=== PATIENT | male | born 1950 | race African-American/Black ===

== ENCOUNTER 2018-11-22 21:32 | Emergency (ER) | payer MEDICARE, BC ==
--- NOTE | 2018-11-23 01:06 | ER Document Report ---
ED Medical Screen (RME) - General Chief Complaint: Fall Stated Complaint: FALL/CHECK Time Seen by Provider: 11/23/18 01:04 Primary Care Provider: TIFFANY LIAO MD [Primary Care Provider] - Follow up as needed Mode of Arrival: Ambulatory Information source: Patient Notes: 68-year-old male presents to ED for complaint of fall when he tripped over a bag at his house hitting a wall with his face. He has a skin tear possible laceration to the left cheek bone. Does have pain and swelling to the left cheek. States he has body aches and muscle aches but there is no vertebral tenderness to the neck or upper back. Patient states he does fall over things in the house. He does have cataracts worse on the left than on the right. Patient is alert oriented respirations regular and unlabored speaking in full sentences walks with a even steady gait. I have greeted and performed a rapid initial assessment of this patient. A comprehensive ED assessment and evaluation of the patient, analysis of test results and completion of medical decision making process will be conducted by an additional ED providers. TRAVEL OUTSIDE OF THE [place] IN LAST 30 DAYS: No - Related Data Allergies/Adverse Reactions: No Known Allergies Allergy (Verified 06/18/14 23:43) Past Medical History - Past Medical History Cardiac Medical History: Reports: Hx Hypercholesterolemia, Hx Hypertension, Hx Pulmonary Embolism GI Medical History: Reports: Hx Gastroesophageal Reflux Disease - Immunizations Hx Diphtheria, Pertussis, Tetanus Vaccination: Yes Physical Exam - Vital signs Vitals: Temp Pulse Resp BP Pulse Ox 98.4 F 78 18 149/74 H 98 11/22/18 21:51 11/22/18 21:51 11/22/18 21:51 11/22/18 21:51 11/22/18 21:51 Course - Vital Signs Vital signs: Temp Pulse Resp BP Pulse Ox 98.4 F 78 18 149/74 H 98 11/22/18 21:51 11/22/18 21:51 11/22/18 21:51 11/22/18 21:51 11/22/18 21:51 Doctor's Discharge - Discharge Referrals: TIFFANY LIAO MD [Primary Care Provider] - Follow up as needed
[2018-11-23] MEDS ORDERED: DIPH/PERTUSS(ACELL)/TETANUS VAC/PF 0.5 ML SYR (>=10YO) IM ONE (02:07)
[2018-11-23] MEDS ORDERED: LIDOCAINE 0.5%/EPINEPHRINE INJ 50 ML VIAL INJ ONE (02:09)
--- NOTE | 2018-11-23 02:37 | RADIOLOGY REPORT (SQ) ---
EXAM DESCRIPTION: XR FACIAL BONES 1-2 VIEWS COMPLETED DATE/TME: 11/23/2018 01:04 CLINICAL HISTORY: 68 years Male, fall laceration to left cheek COMPARISON: None. Findings: Known soft tissue injury; no radioopaque foreign body. Bones, joints, and soft tissues of the BILATERAL XR FACIAL BONES 2 VIEWS appear otherwise intact. IMPRESSION: Soft tissue injury; else, no acute findings.
--- NOTE | 2018-11-23 04:46 | ER Document Report ---
Entered by CONNIE PAIZ SCRIBE 11/23/18 0213 Acting as scribe for:FELICIA COUGHLIN DO ED Fall - General Chief Complaint: Fall Stated Complaint: FALL/CHECK Time Seen by Provider: 11/23/18 01:04 Primary Care Provider: TIFFANY LIAO MD [Primary Care Provider] - Follow up in 3-5 days Mode of Arrival: Ambulatory Information source: Patient Notes: 68-year-old male who presents to the emergency department today with complaints of a laceration to the left side of his face. Patient states he tripped over the strap on a bag and he fell forward. Patient states he was able to catch himself on the wall with his hands however he hit the left side of his face on the mantle above his fireplace. Patient denies a headache or loss of co nsciousness. TRAVEL OUTSIDE OF THE [place] IN LAST 30 DAYS: No - Related data Allergies/Adverse Reactions: No Known Allergies Allergy (Verified 06/18/14 23:43) Past Medical History - General Information source: Patient - Social History Smoking Status: Unknown if Ever Smoked Family History: Reviewed & Not Pertinent Patient has suicidal ideation: No Patient has homicidal ideation: No - Past Medical History Cardiac Medical History: Reports: Hx Hypercholesterolemia, Hx Hypertension, Hx Pulmonary Embolism Renal/ Medical History: Denies: Hx Peritoneal Dialysis GI Medical History: Reports: Hx Gastroesophageal Reflux Disease - Immunizations Hx Diphtheria, Pertussis, Tetanus Vaccination: Yes Review of Systems - Review of Systems Constitutional: No symptoms reported EENT: No symptoms reported Cardiovascular: No symptoms reported Respiratory: No symptoms reported Gastrointestinal: No symptoms reported Genitourinary: No symptoms reported Male Genitourinary: No symptoms reported Musculoskeletal: No symptoms reported Skin: See HPI, Other - laceration to left face Hematologic/Lymphatic: No symptoms reported Neurological/Psychological: No symptoms reported -: Yes All other systems reviewed and negative Physical Exam - Vital signs Vitals: Temp Pulse Resp BP Pulse Ox 98.4 F 78 18 149/74 H 98 11/22/18 21:51 11/22/18 21:51 11/22/18 21:51 11/22/18 21:51 11/22/18 21:51 Interpretation: Normal - General General appearance: Appears well, Alert - HEENT Head: Normocephalic Eyes: Normal Pupils: PERRL Mouth/Lips: Normal Mucous membranes: Normal Pharynx: Normal Neck: Normal - Respiratory Respiratory status: No respiratory distress Chest status: Nontender Breath sounds: Normal Chest palpation: Normal - Cardiovascular Rhythm: Regular Heart sounds: Normal auscultation Murmur: No - Abdominal Inspection: Normal Distension: No distension Bowel sounds: Normal Tenderness: Nontender Organomegaly: No organomegaly - Back Back: Normal, Nontender - Extremities General upper extremity: Normal inspection, Nontender, Normal color, Normal ROM, Normal temperature General lower extremity: Normal inspection, Nontender, Normal color, Normal ROM, Normal temperature, Normal weight bearing. No: Ricky's sign - Neurological Neuro grossly intact: Yes Cognition: Normal Orientation: AAOx4 [place] Coma Scale Eye Opening: Spontaneous [place] Coma Scale Verbal: Oriented Elizabeth Coma Scale Motor: Obeys Commands Madison Coma Scale Total: 15 Speech: Normal Motor strength normal: LUE, RUE, LLE, RLE Sensory: Normal - Psychological Associated symptoms: Normal affect, Normal mood - Skin Skin Temperature: Warm Skin Moisture: Dry Skin Color: Normal Skin irregularity: Laceration - L upper cheek with small jagged laceration. Course - Re-evaluation Re-evalutation: 11/23/18 04:36 Patient is a 68-year-old male who had a mechanical fall and hit the left side of his face on something that was sticking out. He did not pass out. No neck pain. No headache. No other injuries. Small laceration to his left cheek. - Vital Signs Vital signs: Temp Pulse Resp BP Pulse Ox 98.4 F 78 18 149/74 H 98 11/22/18 21:51 11/22/18 21:51 11/22/18 21:51 11/22/18 21:51 11/22/18 21:51 - Diagnostic Test Radiology reviewed: Image reviewed, Reports reviewed Procedures - Laceration/Wound Repair Left Face Wound length (cm): 2 Wound's Depth, Shape: Irregular, Contused tissue Laceration pre-procedure: Sterile PPE donned, Sterile drapes applied Anesthetic type: 1% Lidocaine w/epi Wound explored: Clean Irrigated w/ Saline (mLs): 200 Wound Debrided: Minimal Wound Repaired With: Sutures Suture Size/Type: 5:0 Number of Sutures: 3 Layer Closure?: No Post-procedure wound care: Sterile dressing applied Post-procedure NV exam normal: Yes Complications: No Discharge - Discharge Clinical Impression: Facial laceration Qualifiers: Encounter type: initial encounter Qualified Code(s): S01.81XA - Laceration without foreign body of other part of head, initial encounter Facial contusion Qualifiers: Encounter type: initial encounter Qualified Code(s): S00.83XA - Contusion of other part of head, initial encounter Condition: Stable Disposition: HOME, SELF-CARE Instructions: Antibiotic Ointment Protection ([facility]), Facial Laceration ([facility]), Soap Cleansing ([facility]), Tetanus Immunization Given ([facility]) Additional Instructions: Please follow-up with your doctor for wound reevaluation. The stitches will need to come out in about 5-7 days. Referrals: TIFFANY LIAO MD [Primary Care Provider] - Follow up in 3-5 days Scribe Attestation: 11/23/18 04:45 I personally performed the services described in the documentation, reviewed and edited the documentation which was dictated to the scribe in my presence, and it accurately records my words and actions. I personally performed the services described in the documentation, reviewed and edited the documentation which was dictated to the scribe in my presence, and it accurately records my words and actions.
[2018-11-23 05:09] VITALS: BP 143/89
== END 2018-11-23 05:08 | disposition home or self-care (01) ==
LOC: ER 21:32
DX: S01.81XA Laceration without foreign body of other part of head, initial encounter (principal); W18.30XA Fall on same level, unspecified, initial encounter; E78.00 Pure hypercholesterolemia, unspecified; I10 Essential (primary) hypertension; Z86.711 Personal history of pulmonary embolism; Z23 Encounter for immunization
CPT/HCPCS: 99283; 90471; 70150; 90715; 12011; L0120; J3490

== ENCOUNTER 2018-12-05 16:49 | Emergency (ER) | payer MEDICARE, BC ==
[2018-12-05 17:04] VITALS: BP 140/87
--- NOTE | 2018-12-05 17:36 | ER Document Report ---
ED General - General Chief Complaint: Suture Removal Stated Complaint: SUTURES REMOVAL Time Seen by Provider: 12/05/18 17:15 Primary Care Provider: TIFFANY LIAO MD [Primary Care Provider] - Follow up as needed Notes: Patient is a 68-year-old male that presents to the emergency department for chief complaint of suture removal. Patient states that he was seen here about 1 week ago, for laceration to his face, is repaired with nylon sutures, he denies any any fevers, drainage, or bleeding since the repair. No other complaints at this time. Denies having any pain. Past Medical History: Hypertension, hyperlipidemia, GERD Past Surgical History: Reviewed and noncontributory, and not pertinent to presentation Social History: Denies current tobacco, alcohol or drug use. Family History: Reviewed and noncontributory for presenting illness Allergies: Reviewed, see documented allergy list. REVIEW OF SYSTEMS: Other than noted above, the 12 point review of systems was reviewed with the patient and were negative, all pertinent findings are included in the HPI. PHYSICAL EXAMINATION: Vital signs reviewed, nursing noted reviewed. GENERAL: Well-appearing ,well-nourished and in no acute distress. HEAD: Just inferior to the left orbit, there is a well approximated sutured wound, with 5 sutures present, no drainage noted. EYES: The left cornea is opacified, chronic, sclera anicteric, conjunctiva are normal. ENT: Moist mucous membranes. NECK: Normal range of motion, supple without lymphadenopathy LUNGS: Breath sounds clear to auscultation bilaterally and equal. No wheezes rales or rhonchi. HEART: Regular rate and rhythm without murmurs EXTREMITIES: Nontender, good range of motion, no pitting or edema. NEUROLOGICAL: No focal neurological deficits. Moves all extremities spontaneously Motor and sensory grossly intact on exam. PSYCH: Normal mood, normal affect. SKIN: Warm, Dry, normal turgor, no rashes or lesions noted on exposed skin TRAVEL OUTSIDE OF THE [place] IN LAST 30 DAYS: No - Related Data Allergies/Adverse Reactions: No Known Allergies Allergy (Verified 06/18/14 23:43) Past Medical History - Social History Smoking Status: Former Smoker Family History: Reviewed & Not Pertinent Patient has suicidal ideation: No Patient has homicidal ideation: No - Past Medical History Cardiac Medical History: Reports: Hx Hypercholesterolemia, Hx Hypertension, Hx Pulmonary Embolism Renal/ Medical History: Denies: Hx Peritoneal Dialysis GI Medical History: Reports: Hx Gastroesophageal Reflux Disease - Immunizations Hx Diphtheria, Pertussis, Tetanus Vaccination: Yes Physical Exam - Vital signs Vitals: Temp Pulse Resp BP Pulse Ox 97.4 F 66 20 140/87 H 97 12/05/18 17:01 12/05/18 17:01 12/05/18 17:01 12/05/18 17:01 12/05/18 17:01 Course - Re-evaluation Re-evalutation: Patient's sutures were removed, no palpitations, well approximated wound, bacitracin ointment applied. Patient given post suture removal instructions and discharged home. - Vital Signs Vital signs: Temp Pulse Resp BP Pulse Ox 97.4 F 66 20 140/87 H 97 12/05/18 17:01 12/05/18 17:01 12/05/18 17:01 12/05/18 17:01 12/05/18 17:01 Discharge - Discharge Clinical Impression: Encounter for removal of sutures Condition: Stable Disposition: HOME, SELF-CARE Instructions: Suture Removal Referrals: TIFFANY LIAO MD [Primary Care Provider] - Follow up as needed
== END 2018-12-05 17:43 | disposition home or self-care (01) ==
LOC: ER 16:49
DX: S01.112D Laceration without foreign body of left eyelid and periocular area, subsequent encounter (principal); X58.XXXD Exposure to other specified factors, subsequent encounter; I10 Essential (primary) hypertension; Z87.891 Personal history of nicotine dependence

== ENCOUNTER 2020-02-28 07:32 | Emergency (ER) | payer MEDICARE, BC ==
--- NOTE | 2020-02-28 09:41 | ER Document Report ---
HPI - HPI Time Seen by Provider: 02/28/20 09:29 Notes: 69-year-old male presents to the emergency room for clarification on how to take his MiraLAX for his constipation. Patient states he is a patient of Dr. briceno and the office was not open so he came to the emergency room to get clarification. Last bowel movement was 3 days ago. Patient is had a chronic issue with constipation. Patient wanted to clarify that he only use a capful once a day, which is what the directions state. Denies fevers, chills, chest pain,palpitations, shortness of breath, dyspnea, nausea, vomiting, diarrhea, abdominal pain, hematuria,blurred vision, double vision, loss of vision, speech changes, LH, dizziness, syncope, headaches, wheezing, ST, URI, neck pain, weakness, bowel or bladder dysfunction, saddle anesthesia, numbness or tingling in bilateral upper or lower extremities equally, muscle paralysis, weakness in bilateral upper or lower extremities equally or rash. Denies IV drug use. Past Medical History - General Information source: Patient - Social History Smoking Status: Unknown if Ever Smoked Family History: Reviewed & Not Pertinent - Past Medical History Cardiac Medical History: Reports: Hx Hypercholesterolemia, Hx Hypertension, Hx Pulmonary Embolism Renal/ Medical History: Denies: Hx Peritoneal Dialysis GI Medical History: Reports: Hx Gastroesophageal Reflux Disease - Immunizations Hx Diphtheria, Pertussis, Tetanus Vaccination: Yes Vertical Provider Document - CONSTITUTIONAL Agree With Documented VS: Yes Exam Limitations: No Limitations General Appearance: WD/WN Notes: PHYSICAL EXAMINATION:reviewed vital signs by RN GENERAL: Well-appearing, well-nourished and in no acute distress. HEAD: Atraumatic, normocephalic. EYES: Pupils equal round and reactive to light, extraocular movements intact, sclera anicteric, conjunctiva are normal. ENT: Nares patent, oropharynx clear without exudates. Moist mucous membranes. NECK: Normal range of motion, supple without lymphadenopathy LUNGS: Breath sounds clear to auscultation bilaterally and equal. No wheezes rales or rhonchi. HEART: Regular rate and rhythm without murmurs ABDOMEN: Soft, nontender, nondistended abdomen. No guarding, no rebound. No masses appreciated. Musculoskeletal: Normal range of motion, no pitting or edema. No cyanosis. NEUROLOGICAL: Cranial nerves grossly intact. Normal speech, normal gait. Normal sensory, motor exams PSYCH: Normal mood, normal affect. SKIN: Warm, Dry, normal turgor, no rashes or lesions noted. - INFECTION CONTROL TRAVEL OUTSIDE OF THE [place] IN LAST 30 DAYS: No Course - Re-evaluation Re-evalutation: 02/28/20 09:42 Afebrile vital stable no distress. [id number] time of at least 15 minutes spent educating patient on constipation, medications, instructions with patient and how to take MiraLAX, discussed causes of constipation, discussed dietary modifications needed to increase fiber to help with constipation and regular evacuation, increasing oral hydration, avoiding diuretics, discussed evaluating for any bloody stools, abdominal pain fever, vomiting, etc. After performing a Medical Screening Examination, I estimate there is LOW risk for ACUTE APPENDICITIS, BOWEL OBSTRUCTION, ACUTE CHOLECYSTITIS, PERFORATED DIVERTICULITIS, INCARCERATED HERNIA, PANCREATITIS, TESTICULAR TORSION or PERFORATED ULCER, thus I consider the discharge disposition reasonable. Also, there is no evidence or peritonitis, sepsis, or toxicity. I have reevaluated this patient multiple times and no significant life threatening changes are noted. The patient and I have discussed the diagnosis and risks, and we agree with discharging home with close follow-up with the understanding that symptoms and presentations can change. We also discussed returning to the Emergency Department immediately if new or worsening symptoms occur. We have discussed the symptoms which are most concerning (e.g., bloody stool, fever, changing or worsening pain, intractable vomiting - standard verbal up date) that necessitate immediate return. 02/28/20 10:22 - Vital Signs Vital signs: Temp Pulse Resp BP Pulse Ox 97.7 F 78 18 158/90 H 99 02/28/20 07:38 02/28/20 07:38 02/28/20 07:38 02/28/20 07:38 02/28/20 07:38 Discharge - Discharge Clinical Impression: Constipation Condition: Stable Disposition: HOME, SELF-CARE Instructions: Constipation ([facility]) Additional Instructions: Take 1 capful of your laxative with a liquid once a day as directed. Please increase oral hydration avoid diuretics such as coffee, soda etc. Please increase your fiber. Walking and gentle exercise can help move bowel movements. Return immediately for any new or worsening symptoms. Follow up with primary care provider, call tomorrow to make followup appointment. Referrals: TIFFANY LIAO MD [Primary Care Provider] - Follow up as needed
[2020-02-28 10:03] VITALS: BP 145/87
== END 2020-02-28 10:03 | disposition home or self-care (01) ==
LOC: ER 07:32
DX: K59.09 Other constipation (principal); E78.00 Pure hypercholesterolemia, unspecified; I10 Essential (primary) hypertension; Z86.711 Personal history of pulmonary embolism
CPT/HCPCS: 99283